=== PATIENT | female | born 1950 | race Caucasian/White ===

== ENCOUNTER 2017-03-30 07:32 | Inpatient (IN) ==
[2017-03-30] MEDS ORDERED: IOPAMIDOL 100 ML BOTTLE IV ONE (07:33)
[2017-03-30] MEDS ORDERED: DILTIAZEM 25 MG/5 ML VIAL IV ONE ×3 (07:34→07:57)
[2017-03-30] MEDS ORDERED: DILTIAZEM 125 MG in 0.9 % SODIUM CHLORIDE 100 ML IV SCH (07:45)
--- NOTE | 2017-03-30 07:47 | Emergency Department Note ---
General Adult HPI - General Chief complaint: Chest Pain Stated complaint: chest pain, fast hR Time Seen by Provider: 03/30/17 07:45 - History of Present Illness HPI Narrative: This patient noticed a tachycardia beginning about 30 minutes ago. Is it is associated with some chest pressure. Feels slightly short of breath. Not sure she has had this before or not. - Related Data Home Medications Medication Instructions Recorded Confirmed Fexofenadine [Nelda] 180 mg PO DAILY 08/30/15 03/30/17 Hydrochlorothiazide [Oretic] 12.5 mg PO DAILY 08/30/15 03/30/17 Vitamin D3 5,000 unit PO DAILY 08/30/15 03/30/17 diphenhydrAMINE [Benadryl] 25 mg PO HSP PRN 08/30/15 03/30/17 Albuterol Sulfate [Ventolin] 2 puff INH TID 03/30/17 03/30/17 Methocarbamol [Robaxin-750] 750 mg PO TID PRN 03/30/17 03/30/17 Montelukast Sodium [Singulair] 10 mg PO DAILY 03/30/17 03/30/17 Naproxen Sod/Diphenhydram HCl 1 tablet PO HS PRN 03/30/17 03/30/17 [Aleve Pm Caplet] Topiramate [Qudexy Xr] 100 mg PO HS 03/30/17 03/30/17 Vitamin D3 400 unit PO DAILY 03/30/17 03/30/17 metFORMIN [Glucophage] 500 mg PO DAILY 03/30/17 03/30/17 Previous Rx's Medication Instructions Recorded Enoxaparin [Lovenox] 80 mg SQ BID #20 04/01/17 Warfarin [Coumadin] 5 mg PO DAILY #30 tablet 04/01/17 Allergies Allergy/AdvReac Type Severity Reaction Status Date / Time acetaminophen [From Tylenol] Allergy Severe Anaphylaxis Verified 03/30/17 13:34 egg Allergy Verified 08/30/15 09:25 wheat Allergy Verified 08/30/15 09:25 dairy Allergy Uncoded 08/30/15 09:25 Review of Systems All systems ED: reviewed and negative except as stated. Past Medical History - Past Medical History Medical history: Reports: no medical history Physical Exam - General Limitations: no limitations General appearance: alert, in no apparent distress - Head Head exam: atraumatic, normocephalic - Eye Eye exam: Present: normal appearance - ENT ENT exam: normal exam - Neck Neck exam: Present: normal inspection - Chest Chest inspection: Present: normal inspection - Respiratory Respiratory exam: Present: normal lung sounds bilaterally - Cardiovascular Cardiovascular exam: Present: tachycardia, irregular rhythm - Abdominal Exam Abdominal exam: Present: soft. Absent: distention, tenderness - Neurological Exam Neurological exam: Present: alert - Psychiatric Psychiatric exam: Present: normal affect, normal mood - Skin Skin exam: Present: warm, dry, intact Course Vital Signs Pulse Rate 104 H 03/30/17 07:38 Respiratory Rate 11 L 03/30/17 07:38 Blood Pressure 129/89 03/30/17 07:38 Pulse Oximetry (%) 91 03/30/17 07:38 Temperature 97.8 F 04/01/17 13:30 Pulse Rate 58 L 04/01/17 13:30 Respiratory Rate 16 04/01/17 13:30 Blood Pressure 111/68 04/01/17 13:30 Pulse Oximetry (%) 99 04/01/17 13:30 Medical Decision Making - Lab Data Result diagrams: 04/01/17 04:48 04/01/17 04:48 Lab Results 03/30/17 03/30/17 03/30/17 Range/Units 07:40 07:40 07:40 WBC 7.4 (4.5-11.0) K/mcL RBC 4.55 (4.00-5.20) M/mcL Hgb 14.4 (12.0-15.0) g/dL Hct 42.2 (36.0-48.0) % MCV 92.7 (80.0-100.0) fL MCH 31.6 (26.0-34.0) pg MCHC 34.1 (31.0-36.0) g/dL RDW 13.9 (11.5-14.5) % Plt Count 218 (140-440) K/mcL MPV 8.5 (7.4-10.4) fL Gran % 61.4 (38.0-78.0) % Lymph % (Auto) 29.0 (15.5-49.0) % Hardy % (Auto) 6.7 (1.0-12.0) % Eos % (Auto) 2.3 (0.0-7.0) % Baso % (Auto) 0.6 (0.0-2.0) % Gran # 4.6 (1.8-8.0) K/mcL Lymph # (Auto) 2.2 (1.5-4.8) K/mcL Hardy # (Auto) 0.5 (0.1-0.9) K/mcL Eos # (Auto) 0.2 (0.0-0.7) K/mcL Baso # (Auto) 0 (0.0-0.3) K/mcL ESR (0-20) mm/hr PT (11.9-14.5) sec INR (0.9-1.1) APTT (20-37) sec D-Dimer Sodium 139 (133-145) mmol/L Potassium 4.2 (3.3-5.1) mmol/L Chloride 103 (96-108) mmol/L Carbon Dioxide 16 L (22-30) mmol/L Anion Gap 20.0 H (8-16) BUN 18 (8-23) mg/dl Creatinine 1.0 (0.6-1.1) mg/dl GFR Calculation 59 Glucose 122 H (70-105) mg/dL Calcium 9.2 (8.6-10.4) mg/dl Magnesium (1.6-2.5) mg/dL Total Bilirubin 0.5 (0.0-1.0) mg/dL AST 42 H (0-37) U/l ALT 20 (0-40) U/l Alkaline Phosphatase 55 (39-117) U/L Total Creatine Kinase 205 H (24-170) IU/L CK-MB (CK-2) 3.2 H (0-2.9) ng/ml Myoglobin 50 (25-58) ng/ml Troponin T < 0.01 (0-0.03) ng/ml Total Protein 6.9 (5.9-8.4) gm/dL Albumin 4.3 (3.2-5.2) gm/dL Globulin 2.6 (2.2-3.7) gm/dL Albumin/Globulin Ratio 1.7 (1.0-2.3) TSH (0.27-5.01) uIU/ml 03/30/17 03/30/17 03/30/17 Range/Units 07:40 07:40 07:40 WBC (4.5-11.0) K/mcL RBC (4.00-5.20) M/mcL Hgb (12.0-15.0) g/dL Hct (36.0-48.0) % MCV (80.0-100.0) fL MCH (26.0-34.0) pg MCHC (31.0-36.0) g/dL RDW (11.5-14.5) % Plt Count (140-440) K/mcL MPV (7.4-10.4) fL Gran % (38.0-78.0) % Lymph % (Auto) (15.5-49.0) % Hardy % (Auto) (1.0-12.0) % Eos % (Auto) (0.0-7.0) % Baso % (Auto) (0.0-2.0) % Gran # (1.8-8.0) K/mcL Lymph # (Auto) (1.5-4.8) K/mcL Hardy # (Auto) (0.1-0.9) K/mcL Eos # (Auto) (0.0-0.7) K/mcL Baso # (Auto) (0.0-0.3) K/mcL ESR (0-20) mm/hr PT 14.6 H (11.9-14.5) sec INR 1.1 (0.9-1.1) APTT 26 (20-37) sec D-Dimer TNP Sodium (133-145) mmol/L Potassium (3.3-5.1) mmol/L Chloride (96-108) mmol/L Carbon Dioxide (22-30) mmol/L Anion Gap (8-16) BUN (8-23) mg/dl Creatinine (0.6-1.1) mg/dl GFR Calculation Glucose (70-105) mg/dL Calcium (8.6-10.4) mg/dl Magnesium (1.6-2.5) mg/dL Total Bilirubin (0.0-1.0) mg/dL AST (0-37) U/l ALT (0-40) U/l Alkaline Phosphatase (39-117) U/L Total Creatine Kinase (24-170) IU/L CK-MB (CK-2) (0-2.9) ng/ml Myoglobin (25-58) ng/ml Troponin T (0-0.03) ng/ml Total Protein (5.9-8.4) gm/dL Albumin (3.2-5.2) gm/dL Globulin (2.2-3.7) gm/dL Albumin/Globulin Ratio (1.0-2.3) TSH 1.70 (0.27-5.01) uIU/ml 03/30/17 03/30/17 03/30/17 Range/Units 07:40 07:40 08:30 WBC (4.5-11.0) K/mcL RBC (4.00-5.20) M/mcL Hgb (12.0-15.0) g/dL Hct (36.0-48.0) % MCV (80.0-100.0) fL MCH (26.0-34.0) pg MCHC (31.0-36.0) g/dL RDW (11.5-14.5) % Plt Count (140-440) K/mcL MPV (7.4-10.4) fL Gran % (38.0-78.0) % Lymph % (Auto) (15.5-49.0) % Hardy % (Auto) (1.0-12.0) % Eos % (Auto) (0.0-7.0) % Baso % (Auto) (0.0-2.0) % Gran # (1.8-8.0) K/mcL Lymph # (Auto) (1.5-4.8) K/mcL Hardy # (Auto) (0.1-0.9) K/mcL Eos # (Auto) (0.0-0.7) K/mcL Baso # (Auto) (0.0-0.3) K/mcL ESR 8 (0-20) mm/hr PT (11.9-14.5) sec INR (0.9-1.1) APTT (20-37) sec D-Dimer 2.35 H Sodium (133-145) mmol/L Potassium (3.3-5.1) mmol/L Chloride (96-108) mmol/L Carbon Dioxide (22-30) mmol/L Anion Gap (8-16) BUN (8-23) mg/dl Creatinine (0.6-1.1) mg/dl GFR Calculation Glucose (70-105) mg/dL Calcium (8.6-10.4) mg/dl Magnesium 2.1 (1.6-2.5) mg/dL Total Bilirubin (0.0-1.0) mg/dL AST (0-37) U/l ALT (0-40) U/l Alkaline Phosphatase (39-117) U/L Total Creatine Kinase (24-170) IU/L CK-MB (CK-2) (0-2.9) ng/ml Myoglobin (25-58) ng/ml Troponin T (0-0.03) ng/ml Total Protein (5.9-8.4) gm/dL Albumin (3.2-5.2) gm/dL Globulin (2.2-3.7) gm/dL Albumin/Globulin Ratio (1.0-2.3) TSH (0.27-5.01) uIU/ml Disposition Pt seen by TANK HOUSE OPERATOR/PA only: No Clinical Impression: Atrial fibrillation with rapid ventricular response Pulmonary emboli Qualifiers: Pulmonary embolism type: other Chronicity: acute Acute cor pulmonale presence: without acute cor pulmonale Qualified Code(s): I26.99 - Other pulmonary embolism without acute cor pulmonale Popliteal DVT (deep venous thrombosis) Qualifiers: Chronicity: acute Laterality: right Qualified Code(s): I82.431 - Acute embolism and thrombosis of right popliteal vein Disposition: Xfer As Inpt ([facility]) Condition: Fair
[2017-03-30] MEDS ORDERED: ASPIRIN 81 MG TAB.CHEW CHEWED ONE (07:57)
[2017-03-30] MEDS ORDERED: 0.9 % SODIUM CHLORIDE 1,000 ML IV ONE (08:17)
[2017-03-30 08:19] LABS: Basophils # (Auto) 0 K/mcL (0.0-0.3); Basophils % (Auto) 0.6 % (0.0-2.0); Eosinophils # (Auto) 0.2 K/mcL (0.0-0.7); Eosinophils % (Auto) 2.3 % (0.0-7.0); Granulocytes % (Auto) 61.4 % (38.0-78.0); Lymphocytes # (Auto) 2.2 K/mcL (1.5-4.8); Mean Cell Volume 92.7 fL (80.0-100.0); Mean Corpuscular HGB Conc 34.1 g/dL (31.0-36.0); Mean Corpuscular Hemoglobin 31.6 pg (26.0-34.0); Monocytes # (Auto) 0.5 K/mcL (0.1-0.9); Monocytes % (Auto) 6.7 % (1.0-12.0); Platelet Count 218 K/mcL (140-440); RBC 4.55 M/mcL (4.00-5.20); Red Cell Distribution Width 13.9 % (11.5-14.5)
[2017-03-30] MEDS ORDERED: METOPROLOL TARTRATE 5 MG/5 ML VIAL IV ONE ×5 (08:30→13:48)
[2017-03-30 08:45] LABS: ALT/SGPT 20 U/l (0-40); Albumin 4.3 gm/dL (3.2-5.2); Albumin/Globulin Ratio 1.7 (1.0-2.3); Alkaline Phosphatase 55 U/L (39-117); Blood Urea Nitrogen 18 mg/dl (8-23); Creatine Kinase 205 IU/L (24-170); Creatine Kinase MB 3.2 ng/ml (0-2.9); Myoglobin 50 ng/ml (25-58)
--- NOTE | 2017-03-30 08:52 | XRay Report ---
CLINICAL INFORMATION: Chest pain COMPARISON: 07/31/2016 FINDINGS:The heart size, mediastinum and pulmonary vessels are unremarkable. The lungs are clear. There are no effusions. The bones and soft tissues are within normal limits. IMPRESSION: Normal chest. Interpreted and Authenticated by: Humza Coronel 03/30/17
[2017-03-30] MEDS ORDERED: DIGOXIN 500 MCG/2 ML AMPUL IV ONE ×3 (09:17→09:24)
--- NOTE | 2017-03-30 10:28 | Cat Scan Report ---
CLINICAL INFORMATION: Chest pain COMPARISON: None TECHNIQUE: Axial images obtained through the chest. 80 intravenous contrast administration was administered, and scanning was performed during pulmonary arterial phase. Sagittally and coronally reformatted images were obtained. MIP reformatted images. FINDINGS: Mediastinal windows show multiple, predominantly subocclusive acute pulmonary emboli: Right lower lobe pulmonary artery, medial and posterior basilar segmental pulmonary arteries of the right lower lobe, the posterior and lateral basilar segmental arteries of the left lower lobe, medial segmental artery of right middle lobe, anterior segmental artery of the right upper lobe, posterior segmental artery right upper lobe, anterior segmental artery of the left upper lobe. The central pulmonary arteries are well opacified and normal in caliber. There is no evidence of pulmonary hypertension or right heart enlargement. The thoracic aorta is normal in contour and caliber. The heart is normal in size and configuration. The proximal coronary arteries contain only minimal scattered atherosclerotic plaque. Esophagus is normal. There is no adenopathy in the mediastinal, hilar or axillary regions. Pulmonary parenchymal windows show the lungs are clear. There are no effusions. Bones and soft tissues of the chest wall are normal. Abdominal images show the visualized liver, adrenal glands spleen, pancreas and left kidney to be normal. There is a 6 cm simple cyst superior pole the right kidney. 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 The proximal SMA is unremarkable. IMPRESSION: 1. Multiple subocclusive acute pulmonary emboli. No CT evidence for pulmonary hypertension or right heart strain 2. 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 The SMA is widely patent. 3. 6 cm simple cyst - superior pole the right kidney Interpreted and Authenticated by: Humza Coronel 03/30/17
[2017-03-30] MEDS ORDERED: ENOXAPARIN 100 MG/ML SYRINGE SQ ONE (10:30)
[2017-03-30] MEDS ORDERED: WARFARIN 7.5 MG TABLET PO ONE (10:30)
[2017-03-30] MEDS ORDERED: ENOXAPARIN 80 MG/0.8 ML SYRINGE ONE (10:37)
--- NOTE | 2017-03-30 11:04 | Emergency Department Note ---
Chest Pain HPI - General Chief Complaint: Chest Pain Stated Complaint: chest pain, fast hR Time Seen by Provider: 03/30/17 07:45 Source: patient Mode of arrival: ambulatory Limitations: no limitations - History of Present Illness HPI Narrative: This 66-year-old female came in before my shift started with rapid ventricular rate, new onset atrial fibrillation. Her workup includes a CTA that showed positive for multiple subsegmental and segmental pulmonary emboli in the bilateral lower lobes and a few in the upper lobes. There was no sign of pulmonary hypertension or right atrial enlargement. Patient gave me a history of some shortness of breath for several weeks. She has no history of recent surgery, recent travel, recent lower extremity injury or personal history of blood clots. No family history of blood clots. She does give a history of muscle cramps in her lower extremities but this is long- term. - Related Data Home Medications Medication Instructions Recorded Confirmed Fexofenadine [Nelda] 180 mg PO DAILY 08/30/15 03/30/17 Hydrochlorothiazide [Oretic] 12.5 mg PO DAILY 08/30/15 03/30/17 Vitamin D3 5,000 unit PO DAILY 08/30/15 03/30/17 diphenhydrAMINE [Benadryl] 25 mg PO HSP PRN 08/30/15 03/30/17 Linagliptin/Metformin HCl 1 tablet PO DAILY 03/30/17 03/30/17 [Jentadueto 2.5 mg-500 mg Tab] Methocarbamol [Robaxin-750] 750 mg PO TID PRN 03/30/17 03/30/17 Montelukast Sodium [Singulair] 10 mg PO DAILY 03/30/17 03/30/17 Topiramate [Qudexy Xr] 100 mg PO HS 03/30/17 03/30/17 metFORMIN [Glucophage] 500 mg PO DAILY 03/30/17 03/30/17 Allergies Allergy/AdvReac Type Severity Reaction Status Date / Time acetaminophen [From Tylenol] Allergy Verified 08/30/15 09:24 egg Allergy Verified 08/30/15 09:25 wheat Allergy Verified 08/30/15 09:25 dairy Allergy Uncoded 08/30/15 09:25 Chest Pain PMH - Past Medical History Medical history: Reports: no medical history Physical Exam - General Limitations: no limitations General appearance: alert, in no apparent distress Course Course Narrative: See info under HPI also. Patient's rapid ventricular response including significant amount of time in the 1:30 to 140 range persisted in spite of a diltiazem drip that had gone up to 15 mg. She had had one dose of metoprolol 5 mg IV and 1 dose of digoxin 0.25 mg and continued to have this RVR. I discussed the case with Dr. Wray, hospitalist, with conclusion to maximize her diltiazem drip at 20 mg if her blood pressure with maintained. Before doing this her blood pressure was 117 systolic and it was felt that this was close to normal for her and so he went up to the 20 mg drip. My discussion with him was to push the RVR down with this increase in the drip and if not effective do a second dose of metoprolol and if this was not effective than the last option would be amiodarone and he would prefer cardiology to help assist in that care which is not available locally. Review of chart includes a d-dimer of 2.35, INR 1.1, PTT 26. Platelet count was normal and her CBC otherwise unremarkable. Her carbon dioxide on her metabolic panel was low at 16. Glucose was 122, anion gap 20 and AST 42. Others were totally unremarkable. Cardiac enzymes were negative. A TSH was added and came back as normal. Patient requested that we speak with her previous employer, medical affairs manager Dr. Licona, which I did. He felt that her heart rate, with her being quite stable could endure for at least a number of hours to see if medications improved her heart rate control (i.e, give it more time). Amiodarone would be her fourth option and this is a slow bolus. I spoke with the hospitalist, Dr. Wray, several times with regards to her situation and case. An ultrasound of her lower extremities demonstrated a distal popliteal clot and extension into the peroneal vein on the right leg. Because of her multiple clots, I also spoke with Dr. Humza Keller at [facility], interventional radiologist, about the possibility of thrombolysis. His conclusion was that there would be questionable benefit, her ratio is 0.8-0.9, and her total clot burden wasn't major. She does have multiple small pulmonary emboli and one a little bit larger but nonocclusive in the right side. he recommened against thrombolysis this at this point in time. He did not recommend a filter unless there were worsening symptoms or findings. At this point the clot has probably gone from her distal thigh veins into her chest and additional treatment of her lower extremity pain is not mechanical or a lytic in nature except a systemic anticoagulation. In speaking about this with Dr. Wray and he agrees and will accept her being transferred to [facility] on a monitored bed. At the time of discharge her heart rate would be variable between 120s and, only 135-140 but remaining asymptomatic. Consider follow-up enzymes. Continue with anticoagulation. Lovenox (1 mg/kg) has been given and coumadin 7.5. Vital Signs Pulse Rate 104 H 03/30/17 07:38 Respiratory Rate 11 L 03/30/17 07:38 Blood Pressure 129/89 03/30/17 07:38 Pulse Oximetry (%) 91 03/30/17 07:38 Temperature 97.0 F 03/30/17 07:39 Pulse Rate 75 03/30/17 11:50 Respiratory Rate 15 03/30/17 11:50 Blood Pressure 98/64 03/30/17 11:50 Pulse Oximetry (%) 96 03/30/17 11:50 Chest Pain - Lab Data Result diagrams: 03/30/17 07:40 03/30/17 07:40 Lab Results 03/30/17 03/30/17 03/30/17 Range/Units 07:40 07:40 07:40 WBC 7.4 (4.5-11.0) K/mcL RBC 4.55 (4.00-5.20) M/mcL Hgb 14.4 (12.0-15.0) g/dL Hct 42.2 (36.0-48.0) % MCV 92.7 (80.0-100.0) fL MCH 31.6 (26.0-34.0) pg MCHC 34.1 (31.0-36.0) g/dL RDW 13.9 (11.5-14.5) % Plt Count 218 (140-440) K/mcL MPV 8.5 (7.4-10.4) fL Gran % 61.4 (38.0-78.0) % Lymph % (Auto) 29.0 (15.5-49.0) % Rice % (Auto) 6.7 (1.0-12.0) % Eos % (Auto) 2.3 (0.0-7.0) % Baso % (Auto) 0.6 (0.0-2.0) % Gran # 4.6 (1.8-8.0) K/mcL Lymph # (Auto) 2.2 (1.5-4.8) K/mcL Rice # (Auto) 0.5 (0.1-0.9) K/mcL Eos # (Auto) 0.2 (0.0-0.7) K/mcL Baso # (Auto) 0 (0.0-0.3) K/mcL PT (11.9-14.5) sec INR (0.9-1.1) APTT (20-37) sec D-Dimer Sodium 139 (133-145) mmol/L Potassium 4.2 (3.3-5.1) mmol/L Chloride 103 (96-108) mmol/L Carbon Dioxide 16 L (22-30) mmol/L Anion Gap 20.0 H (8-16) BUN 18 (8-23) mg/dl Creatinine 1.0 (0.6-1.1) mg/dl GFR Calculation 59 Glucose 122 H (70-105) mg/dL Calcium 9.2 (8.6-10.4) mg/dl Total Bilirubin 0.5 (0.0-1.0) mg/dL AST 42 H (0-37) U/l ALT 20 (0-40) U/l Alkaline Phosphatase 55 (39-117) U/L Total Creatine Kinase 205 H (24-170) IU/L CK-MB (CK-2) 3.2 H (0-2.9) ng/ml Myoglobin 50 (25-58) ng/ml Troponin T < 0.01 (0-0.03) ng/ml Total Protein 6.9 (5.9-8.4) gm/dL Albumin 4.3 (3.2-5.2) gm/dL Globulin 2.6 (2.2-3.7) gm/dL Albumin/Globulin Ratio 1.7 (1.0-2.3) TSH (0.27-5.01) uIU/ml 03/30/17 03/30/17 03/30/17 Range/Units 07:40 07:40 07:40 WBC (4.5-11.0) K/mcL RBC (4.00-5.20) M/mcL Hgb (12.0-15.0) g/dL Hct (36.0-48.0) % MCV (80.0-100.0) fL MCH (26.0-34.0) pg MCHC (31.0-36.0) g/dL RDW (11.5-14.5) % Plt Count (140-440) K/mcL MPV (7.4-10.4) fL Gran % (38.0-78.0) % Lymph % (Auto) (15.5-49.0) % Rice % (Auto) (1.0-12.0) % Eos % (Auto) (0.0-7.0) % Baso % (Auto) (0.0-2.0) % Gran # (1.8-8.0) K/mcL Lymph # (Auto) (1.5-4.8) K/mcL Rice # (Auto) (0.1-0.9) K/mcL Eos # (Auto) (0.0-0.7) K/mcL Baso # (Auto) (0.0-0.3) K/mcL PT 14.6 H (11.9-14.5) sec INR 1.1 (0.9-1.1) APTT 26 (20-37) sec D-Dimer TNP Sodium (133-145) mmol/L Potassium (3.3-5.1) mmol/L Chloride (96-108) mmol/L Carbon Dioxide (22-30) mmol/L Anion Gap (8-16) BUN (8-23) mg/dl Creatinine (0.6-1.1) mg/dl GFR Calculation Glucose (70-105) mg/dL Calcium (8.6-10.4) mg/dl Total Bilirubin (0.0-1.0) mg/dL AST (0-37) U/l ALT (0-40) U/l Alkaline Phosphatase (39-117) U/L Total Creatine Kinase (24-170) IU/L CK-MB (CK-2) (0-2.9) ng/ml Myoglobin (25-58) ng/ml Troponin T (0-0.03) ng/ml Total Protein (5.9-8.4) gm/dL Albumin (3.2-5.2) gm/dL Globulin (2.2-3.7) gm/dL Albumin/Globulin Ratio (1.0-2.3) TSH 1.70 (0.27-5.01) uIU/ml 03/30/17 Range/Units 08:30 WBC (4.5-11.0) K/mcL RBC (4.00-5.20) M/mcL Hgb (12.0-15.0) g/dL Hct (36.0-48.0) % MCV (80.0-100.0) fL MCH (26.0-34.0) pg MCHC (31.0-36.0) g/dL RDW (11.5-14.5) % Plt Count (140-440) K/mcL MPV (7.4-10.4) fL Gran % (38.0-78.0) % Lymph % (Auto) (15.5-49.0) % Rice % (Auto) (1.0-12.0) % Eos % (Auto) (0.0-7.0) % Baso % (Auto) (0.0-2.0) % Gran # (1.8-8.0) K/mcL Lymph # (Auto) (1.5-4.8) K/mcL Rice # (Auto) (0.1-0.9) K/mcL Eos # (Auto) (0.0-0.7) K/mcL Baso # (Auto) (0.0-0.3) K/mcL PT (11.9-14.5) sec INR (0.9-1.1) APTT (20-37) sec D-Dimer 2.35 H Sodium (133-145) mmol/L Potassium (3.3-5.1) mmol/L Chloride (96-108) mmol/L Carbon Dioxide (22-30) mmol/L Anion Gap (8-16) BUN (8-23) mg/dl Creatinine (0.6-1.1) mg/dl GFR Calculation Glucose (70-105) mg/dL Calcium (8.6-10.4) mg/dl Total Bilirubin (0.0-1.0) mg/dL AST (0-37) U/l ALT (0-40) U/l Alkaline Phosphatase (39-117) U/L Total Creatine Kinase (24-170) IU/L CK-MB (CK-2) (0-2.9) ng/ml Myoglobin (25-58) ng/ml Troponin T (0-0.03) ng/ml Total Protein (5.9-8.4) gm/dL Albumin (3.2-5.2) gm/dL Globulin (2.2-3.7) gm/dL Albumin/Globulin Ratio (1.0-2.3) TSH (0.27-5.01) uIU/ml Disposition Pt seen by ELECTRON MICROPROBE OPERATOR/PA only: No Clinical Impression: Atrial fibrillation with rapid ventricular response Pulmonary emboli Qualifiers: Pulmonary embolism type: other Chronicity: acute Acute cor pulmonale presence: without acute cor pulmonale Qualified Code(s): I26.99 - Other pulmonary embolism without acute cor pulmonale Popliteal DVT (deep venous thrombosis) Qualifiers: Chronicity: acute Laterality: right Qualified Code(s): I82.431 - Acute embolism and thrombosis of right popliteal vein Summary: See under COURSE Disposition: Xfer As Inpt ([facility]) Condition: Serious Referrals: Yasmine Walden MD [Primary Care Provider] -
--- NOTE | 2017-03-30 12:51 | Ultrasound Report ---
CLINICAL INFORMATION: Elevated d-dimer with multiple known acute pulmonary emboli COMPARISON: None. FINDINGS: There is occlusive thrombus within the popliteal and proximal peroneal paired veins. The remainder of the deep venous system including the superficial femoral, common femoral, profunda femoris femoral and other trifurcation calf veins are widely patent IMPRESSION: Deep venous thrombus involving the popliteal and proximal peroneal venous segments Interpreted and Authenticated by: Humza Coronel 03/30/17
[2017-03-30] MEDS ORDERED: 0.9 % SODIUM CHLORIDE 1,000 ML IV SCH (13:15)
[2017-03-30] MEDS ORDERED: ACETAMINOPHEN 325 MG TABLET PO PRN (13:19)
[2017-03-30] MEDS ORDERED: ONDANSETRON 4 MG/2 ML VIAL IV PRN (13:19)
[2017-03-30] MEDS ORDERED: POTASSIUM CHLORIDE 20 MEQ PACKET PO PRN (13:19)
[2017-03-30] MEDS ORDERED: DEXTROSE 50% 50 ML VIAL IV PRN (13:19)
[2017-03-30] MEDS ORDERED: traZODone HCL 50 MG TABLET PO PRN (13:19)
[2017-03-30] MEDS ORDERED: DEXTROSE 31 GM ORAL.SUSP PO PRN (13:19)
[2017-03-30] MEDS ORDERED: ACETAMINOPHEN 1,000 MG/100 ML BOTTLE IV PRN (13:19)
[2017-03-30] MEDS ORDERED: MAGNESIUM SULFATE 2 GM/50 ML BAG IV PRN (13:19)
[2017-03-30] MEDS: METOPROLOL TARTRATE 5 MG/5 ML VIAL IV SCH ×3 (13:28→14:22)
[2017-03-30] MEDS: 0.9 % SODIUM CHLORIDE 10 ML SYRINGE IV SCH ×3 (13:28→22:02)
[2017-03-30] MEDS: 0.9 % SODIUM CHLORIDE 1,000 ML IV SCH (13:40)
[2017-03-30] MEDS ORDERED: METHOCARBAMOL 750 MG TABLET PO PRN (13:49)
--- NOTE | 2017-03-30 13:53 | Internal Med History&Physical ---
Medical - H&P: HPI Patient information: Note initiated : 03/30/17 at 1:45 pm Patient: Carey Lin a 66 y/o F admitted on 03/30/17 for Chest Pain, Fast HR. Chief Complaint: hest pain Chief complaint: chest pain History of present illness: Ms. Lin is a 66 year old F ho comes to [facility] ER after she has been experiencing significant substernal chest pain that started this morning ddescribed as 8 out of 10-10 out of 10 associated with exertion. There was no radiation to the arm. Patient has been feeling short of breath over the last month with radual progression of dyspnea on maximal exertion to dyspnea on minimal exertion. during the course of 1 month patient has been working her regular job and also taking care of horses however she has noticed a radual functional decline. She denies ssociated weight loss, drenching sweats,roductive sputum or hemoptysis. This morning she while checking her pulse she felt it thready and fast. She subsequently came to [facility] ER initial here workup was significant for atrial fibrillation with rapid ventricular rate. She underwent CT angiogram that revealed multifocal pulmonary embolism and lower extremity DVT on ultrasound. Patient was started on diltiazem drip with inadequate response and subsequently loaded on digoxin and received dose of metoprolol with heart rate improving around 130s from a peak of 170s. Subsequently cardiology and interventional radiology was consulted by ED physician. As per interventional radiology he would not requiring emergent catheter thrombolysis given segmental nature of PE. Cardiology recommended managing on rate control modalities including diltiazem/beta pari. Patient was started on 1 mg per KG Lovenox. First dose of Coumadin was administered. Initial cardiac enzymes were negative. Subsequently hospitalist service was consulted for management. xamination patient is accompanied with her . She denies active distress. She feels a lot better. She feels slightly lightheaded.eart rate is variable between 1:30 to 140 on telemetry is regular. She is nondiaphoretic. She is alert and cooperative other than above patient deniesglandular swelling and rash joint pain changes in medication. She denies recent lower extremity trauma, transcontinental flight. She denies clotting or bleeding history. She denies immobilization or lower extremity surgery. She however takes estrogens. 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 Functional capacity: independent ambulation Smoking status: Never smoker Have you smoked in the last 12 months: No Drug use: none Alcohol use: none Medical - H&P: Meds Home Medications Medication Instructions Recorded Confirmed Type Fexofenadine [Nelda] 180 mg PO DAILY 08/30/15 03/30/17 History Hydrochlorothiazide [Oretic] 12.5 mg PO DAILY 08/30/15 03/30/17 History Vitamin D3 5,000 unit PO DAILY 08/30/15 03/30/17 History diphenhydrAMINE [Benadryl] 25 mg PO HSP PRN 08/30/15 03/30/17 History Linagliptin/Metformin HCl 1 tablet PO DAILY 03/30/17 03/30/17 History [Jentadueto 2.5 mg-500 mg Tab] Methocarbamol [Robaxin-750] 750 mg PO TID PRN 03/30/17 03/30/17 History Montelukast Sodium [Singulair] 10 mg PO DAILY 03/30/17 03/30/17 History Topiramate [Qudexy Xr] 100 mg PO HS 03/30/17 03/30/17 History metFORMIN [Glucophage] 500 mg PO DAILY 03/30/17 03/30/17 History Allergies Allergy/AdvReac Type Severity Reaction Status Date / Time acetaminophen [From Tylenol] Allergy Severe Anaphylaxis Verified 03/30/17 13:34 egg Allergy Verified 08/30/15 09:25 wheat Allergy Verified 08/30/15 09:25 dairy Allergy Uncoded 08/30/15 09:25 Medical - H&P: Exam - Constitutional Vitals: Temp Pulse Resp BP Pulse Ox 97.0 F 84 17 94/50 97 03/30/17 07:39 03/30/17 13:00 03/30/17 13:00 03/30/17 13:00 03/30/17 13:00 General appearance: cooperative, obese Exam: eye movements are normal oral cavity dry ead normocephalic no eardischarge neck no lymphadenopathy S1 and S2 tachycardia irregular,No murmur diminished breath sounds bases abdomen soft ower extremity no cyanosis clubbing,no unilateral swelling skin no suspicious lesions psych alert cooperative neuro nonfocal Medical - H&P: Reslt - Labs CBC & Chem 7: 03/30/17 07:40 03/30/17 07:40 Medical - H&P: A/P (1) Atrial fibrillation with rapid ventricular response Current visit: Yes Status: Acute * atrial fibrillation with rapid ventricular rate-precipitated by multifocal pulmonary embolism. Continue rate control measures. If inadequate responsestart amiodarone * chest pain secondary to coronary hypoperfusion light of A. fib with RVR. hould improve with adequate rate control. * bilateral PE-No current indication for TPA as per interventional radiology. Continue full dose anticoagulation * dM type II continue randial insulin/sitagliptin * Hypertension on thiazide * Full code plan * Full dose anti-coagulation * rate control measures including calcium channel pari/beta pari/digoxin. * f inadequate response start Amiodarone load followed by drip * Admitted to ICU * close hemodynamic monitoring Critical care time spent over 45 minutes
[2017-03-30 14:20] LABS: Magnesium 2.1 mg/dL (1.6-2.5)
[2017-03-30] MEDS: DILTIAZEM 125 MG in 0.9 % SODIUM CHLORIDE 100 ML IV SCH (14:54)
[2017-03-30] MEDS ORDERED: AMIODARONE 150 MG in DEXTROSE 5% IN WATER 50 ML IV ONE (15:30)
[2017-03-30] MEDS: AMIODARONE 360 MG in PREMIX 1 BAG IV SCH ×2 (16:10→21:59)
[2017-03-30] MEDS ORDERED: INSULIN LISPRO 1 UNIT/0.01 ML UNIT SQ SCH (17:00)
[2017-03-30] MEDS: DOCUSATE SODIUM 100 MG CAPSULE PO SCH (20:43)
[2017-03-30] MEDS: SENNOSIDES/DOCUSATE SODIUM 1 TAB TABLET PO SCH (20:43)
[2017-03-30] MEDS: ENOXAPARIN 40 MG/0.4 ML SYRINGE SQ SCH (20:51)
[2017-03-30] MEDS: TOPIRAMATE 100 MG PO SCH (20:52)
[2017-03-31] MEDS: DILTIAZEM 125 MG in 0.9 % SODIUM CHLORIDE 100 ML IV SCH (01:51)
[2017-03-31] MEDS: AMIODARONE 360 MG in PREMIX 1 BAG IV SCH ×2 (03:59→17:49)
[2017-03-31 05:07] LABS: ALT/SGPT 14 U/l (0-40); Albumin/Globulin Ratio 1.4 (1.0-2.3); Alkaline Phosphatase 40 U/L (39-117); Bilirubin,Direct < 0.2 mg/dL (0.0-0.3); Blood Urea Nitrogen 11 mg/dl (8-23); Gamma Glutamyl Transpeptidase 9 U/L (5-36); Magnesium 1.9 mg/dL (1.6-2.5); Uric Acid 5.3 mg/dL (2.5-8.0)
[2017-03-31 05:10] LABS: Mean Cell Volume 93.6 fL (80.0-100.0); Mean Corpuscular HGB Conc 34.3 g/dL (31.0-36.0); Mean Corpuscular Hemoglobin 32.1 pg (26.0-34.0); Platelet Count 185 K/mcL (140-440); RBC 3.59 M/mcL (4.00-5.20); Red Cell Distribution Width 13.4 % (11.5-14.5)
[2017-03-31] MEDS: 0.9 % SODIUM CHLORIDE 10 ML SYRINGE IV SCH ×3 (05:10→21:30)
[2017-03-31 05:28] LABS: Eosinophils % (Manual) 3 % (0-7); Lymphocytes % 38 % (15-49); Monocytes % (Manual) 3 % (1-12); Platelet Estimate NORMAL (NORMAL); RBC Morphology NORMAL (NORMAL); Segmented Neutrophils % 56 % (38-78)
[2017-03-31] MEDS: 0.9 % SODIUM CHLORIDE 1,000 ML IV SCH ×2 (07:12→17:49)
[2017-03-31] MEDS ORDERED: 0.9 % SODIUM CHLORIDE 250 ML IV SCH (07:15)
[2017-03-31] MEDS ORDERED: sitaGLIPtin 100 MG TABLET PO SCH (09:00)
[2017-03-31] MEDS: MULTIVIT,THER IRON,CA,FA & MIN 1 TABLET PO SCH (09:56)
[2017-03-31] MEDS: FEXOFENADINE 180 MG TABLET PO SCH (09:56)
[2017-03-31] MEDS: DOCUSATE SODIUM 100 MG CAPSULE PO SCH ×2 (09:56→21:26)
[2017-03-31] MEDS: MONTELUKAST 10 MG TABLET PO SCH (09:56)
[2017-03-31] MEDS: ENOXAPARIN 40 MG/0.4 ML SYRINGE SQ SCH ×2 (09:57→21:30)
--- NOTE | 2017-03-31 09:59 | Internal Med Progress Note ---
Medical - PN: Subj Patient information: Note initiated : 03/31/17 at 9:55 am Service Date, if different from initiated Date: [] Patient: Carey Lin a 66 y/o F admitted on 03/30/17 for Chest Pain, Fast HR. Chief Complaint: [] Interval history: 03/30-Ms. Lin is a 66 year old F ho comes to [facility] ER after she has been experiencing significant substernal chest pain that started this morning ddescribed as 8 out of 10-10 out of 10 associated with exertion. There was no radiation to the arm. Patient has been feeling short of breath over the last month with radual progression of dyspnea on maximal exertion to dyspnea on minimal exertion. during the course of 1 month patient has been working her regular job and also taking care of horses however she has noticed a radual functional decline. She denies ssociated weight loss, drenching sweats,roductive sputum or hemoptysis. This morning she while checking her pulse she felt it thready and fast. She subsequently came to [facility] ER initial here workup was significant for atrial fibrillation with rapid ventricular rate. She underwent CT angiogram that revealed multifocal pulmonary embolism and lower extremity DVT on ultrasound. Patient was started on diltiazem drip with inadequate response and subsequently loaded on digoxin and received dose of metoprolol with heart rate improving around 130s from a peak of 170s. Subsequently cardiology and interventional radiology was consulted by ED physician. As per interventional radiology he would not requiring emergent catheter thrombolysis given segmental nature of PE. Cardiology recommended managing on rate control modalities including diltiazem/beta pari. Patient was started on 1 mg per KG Lovenox. First dose of Coumadin was administered. Initial cardiac enzymes were negative. Subsequently hospitalist service was consulted for management. xamination patient is accompanied with her . She denies active distress. She feels a lot better. She feels slightly lightheaded.eart rate is variable between 1:30 to 140 on telemetry is regular. She is nondiaphoretic. She is alert and cooperative 03/31- atient converted to sinus after amiodarone load. currently in sinus bradycardia. Amiodarone discontinued. Denies sOB/lightheadedness but complains of minimal chest pain. On full dose Lovenox along with Coumadin.no overnight telemetry events. No other concerns expressed by nursing staff. anticipate discharge in 24 hours with outpatient Lovenox and Coumadin - Constitutional Vitals: Vital Signs Temp Pulse Resp BP Pulse Ox 98.2 F 102 H 20 93/57 100 03/30/17 20:01 03/30/17 13:20 03/30/17 20:01 03/31/17 07:01 03/31/17 07:00 Period Temp Pulse Resp BP Sys/Fernando Pulse Ox Last 24 Hr 97.5 F-98.2 F 102 20-20 83-115/47-87 83-100 Intake and Output 03/30/17 03/31/17 03/31/17 21:59 05:59 13:59 Intake Total 350 / 350 1000 / 1000 Output Total 600 / 600 375 / 375 450 / 450 Balance -250 / -250 -375 / -375 550 / 550 Weight 209 lb Intake & Output: Intake & Output 03/30/17 03/31/17 03/31/17 21:59 05:59 13:59 Intake Total 350 / 350 1000 / 1000 Output Total 600 / 600 375 / 375 450 / 450 Balance -250 / -250 -375 / -375 550 / 550 Weight 209 lb Intake: IV 350 / 350 875 / 875 Sodium Chloride 0.9% 1, 875 / 875 000 ml @ 50 mls/hr IV . Q20H [facility] Rx#:[id number] Cordarone 150 mg In 53 / 53 Dextrose 5% in Water 50 ml @ 300 mls/hr IV ONCE ONE Rx#:[id number] Nexterone 360 mg In 200 / 200 Premix 1 Bag @ 1 MG/MIN 33.33 mls/hr IV .Q6H1M [facility] Rx#:[id number] Cardizem 125 mg In Sodium 97 / 97 Chloride 0.9% 100 ml @ 5 MG/HR 5 mls/hr IV Q12H [facility] Rx#:[id number] IV - Manual Only 125 / 125 Output: Void Amount 600 / 600 375 / 375 450 / 450 General appearance: cooperative, no acute distress Exam: inus bradycardia and telemetry alert oriented nonlabored breathing no lymphedema Medical - PN: Obj Da - Labs CBC & Chem 7: 03/31/17 04:19 03/31/17 04:19 Labs: Abnormal Lab Results 03/31/17 03/31/17 03/31/17 04:19 04:19 04:19 RBC 3.59 L Hgb 11.5 L Hct 33.6 L PT 17.2 H INR 1.4 H Carbon Dioxide 18 L Glucose 122 H Calcium 7.7 L Phosphorus 2.5 L Total Protein 5.1 L Albumin 3.0 L Globulin 2.1 L Triglycerides 183 H Meds: Medications Docusate Sodium (Colace) 100 mg PO BID [facility] Last Admin: 03/30/17 20:43 Dose: Not Given Enoxaparin Sodium (Lovenox) 80 mg SQ BID [facility] Last Admin: 03/30/17 20:51 Dose: 80 mg Fexofenadine HCl (Nelda) 180 mg PO DAILY [facility] Diltiazem HCl 125 mg/ Sodium (Chloride) 125 mls @ 5 mls/hr IV Q12H [facility]; 5 MG/HR PRN Reason: Protocol Last Admin: 03/31/17 01:51 Dose: Not Given Magnesium Sulfate (Magnesium Sulfate) 2 gm in 50 mls @ 50 mls/hr IV UD PRN PRN Reason: MG = or < 1.7 Sodium Chloride (Sodium Chloride 0.9%) 1,000 mls @ 50 mls/hr IV .Q20H [facility] Stop: 04/02/17 01:18 Last Admin: 03/31/17 07:12 Dose: 50 mls/hr AMIODARONE 360 mg/ Premix 200 mls @ 33.33 mls/hr IV .Q6H1M [facility]; 1 MG/MIN PRN Reason: Protocol Stop: 03/31/17 15:44 Last Admin: 03/31/17 03:59 Dose: Not Given Sodium Chloride (Sodium Chloride 0.9%) 250 mls @ 20 mls/hr IV .[id number] [facility] Last Admin: 03/31/17 07:22 Dose: 10 mls/hr Iron Carb/Multivit/Software Support Representative/Folic Acid (Multivitamin W/Minerals) 1 tab PO DAILY [facility] Methocarbamol (Robaxin) 750 mg PO TIDP PRN PRN Reason: Spasms Montelukast Sodium (Singular) 10 mg PO DAILY [facility] Ondansetron HCl (Zofran) 4 mg IV Q4-6HP PRN PRN Reason: Nausea And Vomiting Topiramate [Qudexy (Xr] 100 Mg Cap) 1 dose PO HS [facility] Last Admin: 03/30/17 20:52 Dose: Not Given Potassium Chloride (Klor-Con) 40 meq PO DAILYP PRN PRN Reason: K+ < 3.5 Senna/Docusate Sodium (Senna Plus Tablet) 1 tab PO HS [facility] Last Admin: 03/30/17 20:43 Dose: Not Given Sodium Chloride (Saline Flush) 10 ml IV Q8 [facility] Last Admin: 03/31/17 05:10 Dose: Not Given Trazodone HCl (Desyrel) 50 mg PO HSP PRN PRN Reason: Insomnia Warfarin Sodium (Coumadin Per Pharmacy) 1 order PO UD [facility] Medical - PN: A/P - Time Spent With Patient Total time spent is greater than 50% in coordination of care (as documented) at patient's floor/unit and/or counseling patient: 25 - 35 minutes (1) Atrial fibrillation with rapid ventricular response Status: Acute Assessment and plan: * Multifocal bilateral NPROVOKED pulmonary embolism-n full dose anticoagulation. No evidence of cor pulmonale on echo. rECOMMEND LIFELONG ANTICOAGULATION * Atrial fibrillation with rapid ventricular rate- Currently in sinus status post amiodarone. * Chest pain secondary to coronary hypoperfusion ith underlying RVR. Resolved post conversion to sinus * DM type II continue randial insulin/sitagliptin * Hypertension on thiazide * Full code plan * continue Full dose anti-coagulation * dC miodarone * transfer to telemetry * possible discharge in 24 hours Current Visit: Yes Medical - PN: Qual - VTE Deep Vein Thrombosis/Pulmonary Embolism Present on Admission: Yes
[2017-03-31] MEDS ORDERED: WARFARIN 5 MG TABLET PO ONE (14:00)
[2017-03-31] MEDS ORDERED: LORazepam 0.5 MG TABLET PO PRN (21:00)
[2017-03-31] MEDS: SENNOSIDES/DOCUSATE SODIUM 1 TAB TABLET PO SCH (21:26)
[2017-03-31] MEDS: TOPIRAMATE 100 MG PO SCH (21:30)
[2017-04-01] MEDS: 0.9 % SODIUM CHLORIDE 10 ML SYRINGE IV SCH ×2 (05:21→13:16)
[2017-04-01 07:41] LABS: ALT/SGPT 15 U/l (0-40); Albumin 3.4 gm/dL (3.2-5.2); Albumin/Globulin Ratio 1.6 (1.0-2.3); Alkaline Phosphatase 44 U/L (39-117); Bilirubin,Direct < 0.2 mg/dL (0.0-0.3); Blood Urea Nitrogen 11 mg/dl (8-23); Gamma Glutamyl Transpeptidase 10 U/L (5-36); Uric Acid 5.3 mg/dL (2.5-8.0)
[2017-04-01 08:00] LABS: Mean Cell Volume 93.7 fL (80.0-100.0); Mean Corpuscular Hemoglobin 31.9 pg (26.0-34.0); Platelet Count 205 K/mcL (140-440); RBC 4.29 M/mcL (4.00-5.20); Red Cell Distribution Width 14.1 % (11.5-14.5)
[2017-04-01 08:15] LABS: Band Neutrophils % 1 % (0-10); Basophils % (Manual) 1 % (0-2); Eosinophils % (Manual) 4 % (0-7); Lymphocytes % 33 % (15-49); Monocytes % (Manual) 5 % (1-12); Platelet Estimate NORMAL (NORMAL); RBC Morphology NORMAL (NORMAL); Segmented Neutrophils % 56 % (38-78)
[2017-04-01] MEDS: ENOXAPARIN 40 MG/0.4 ML SYRINGE SQ SCH (08:33)
[2017-04-01] MEDS: DOCUSATE SODIUM 100 MG CAPSULE PO SCH ×2 (08:33→10:09)
[2017-04-01] MEDS: MONTELUKAST 10 MG TABLET PO SCH (08:33)
[2017-04-01] MEDS: FEXOFENADINE 180 MG TABLET PO SCH (08:33)
[2017-04-01] MEDS: MULTIVIT,THER IRON,CA,FA & MIN 1 TABLET PO SCH (08:33)
--- NOTE | 2017-04-01 11:06 | Discharge Summary ---
Medical - DS: Prov Patient information: Note initiated : 04/01/17 at 11:00 am Service Date, if different from initiated Date: [] Patient: Carey Lin 66 y/o F admitted on 03/30/17 for Chest Pain, Atrial Fib. Chief Complaint: [] Date of admission: 03/30/17 13:05 Discharge date: 04/01/17 Primary care physician: Yasmine Walden Admitting clinician: Raj Winslow Consults: 03/30/17 13:19 Consult to Physician [CONS] Routine Comment: Consulting Provider: Raj Winslow Reason For Exam: Physician to Consult Discharging clinician: Anikte Rosenthal Medical - DS: Meds - Discharge Medications Prescriptions: Enoxaparin [Lovenox] 80 mg SQ BID #20 Warfarin [Coumadin] 5 mg PO DAILY #30 tablet Active and Home Medications: Home Medications Fexofenadine [Nelda] 180 mg PO DAILY 08/30/15 [History Confirmed 03/30/17 Last Taken 03/29/17] Hydrochlorothiazide [Oretic] 12.5 mg PO DAILY 08/30/15 [History Confirmed Last Taken 03/30/17] Vitamin D3 5,000 unit PO DAILY 08/30/15 [History Confirmed 03/30/17 Last Taken 09/30/16] diphenhydrAMINE [Benadryl] 25 mg PO HSP PRN 08/30/15 [History Confirmed Last Taken 03/29/17] Albuterol Sulfate [Ventolin] 2 puff INH TID 03/30/17 [History Confirmed Last Taken 01/01/17] Methocarbamol [Robaxin-750] 750 mg PO TID PRN 03/30/17 [History Confirmed Last Taken 03/29/17] Montelukast Sodium [Singulair] 10 mg PO DAILY 03/30/17 [History Confirmed Last Taken 03/29/17] Naproxen Sod/Diphenhydram HCl [Aleve Pm Caplet] 1 tablet PO HS PRN 03/30/17 [ History Confirmed 03/30/17 Last Taken 03/29/17] Topiramate [Qudexy Xr] 100 mg PO HS 03/30/17 [History Confirmed 03/30/17 Last Taken 03/29/17] Vitamin D3 400 unit PO DAILY 03/30/17 [History Confirmed 03/30/17 Last Taken ] metFORMIN [Glucophage] 500 mg PO DAILY 03/30/17 [History Confirmed 03/30/17 Last Taken 03/30/17] Medical - DS: Hosp Hospital course: Mr. Lin is a 66 year old Female presented to the ER with complaints of chest pain and acute shortness of breath. The aptient has chr worsening of her Shortness of breath over 1 month, but had acute onset of chest pain on the day of presentation to the Er. In the ER the patient was noted to be tachycardic, tachypneic, and in afib with RVR with elevated D dimer. The patient had a CTA done which showed Acute pulmonary Embolism, she also had DVT on her lower extremity. IR was consulted by the ER and the patient was deemed not a candidate for interventional procedures given subsegmental nature of the embolus. Anticoagulation was recommended. The patient had AFib with RVR and was placed on cardizem drip, and then subsequently given metoprolol, digoxin and amiodarone. Cardiology consulted by phone recommended rate control and monitoring. Patient HR improved and she was off all meds > 24 hrs with stable heart rate at discharge Acute pulmonary embolus.: Likely secondary to DVT, but the primary etiology of thrombosis remains uncertain, pt has denied any history of immobility or use of prothrombotic drugs, she has had a colonoscopy but not recently, she denies having a mammogram recently. The patient is presently being treated with lovenox and coumadin. She will consider newer anticoagulation agents after further review with her PCP. The patient will need follow up with hematology for evaluation of unprovoked DVT, and likely the duration of anticoagulation. Major risks benefits of the new medication discussed, all questions answered. Afib with RVR likely secondary to Acute pe, after the stabilization of the acute event the patient was intially treated with cardizem, digoxin, metoprolol and amiodarone, but the patients HR improved and at the time of discharge has not needed any meds for rate control. Its likely that at this time she has some residual effect of long acting medication of amiodarone, Should she become tachycardic in future, cardiazem vs metoprolol can be used for rate control. The rest of the stay in the hospital was uneventful, no changes in home meds done except addition of coumadin and lovnenox. 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 Pt will follow up with PCP for INR monitoring and Hematology for evaluation of unprovoked PE. Discharge diagnosis: acute PE, DVT, Afib with RVR - Time Spent with Patient Total time spent providing and/or coordinating discharge services: Greater than 30 minutes Medical - DS: Exam - Constitutional Vitals: Vital Signs Temp Pulse Resp BP BP BP Pulse Ox 04/01/17 08:00 97.5 F 16 139/80 99 04/01/17 04:00 96.9 F L 64 18 125/71 98 04/01/17 00:00 63 18 95 03/31/17 20:00 97.5 F 20 123/64 95 03/31/17 16:17 117/77 03/31/17 16:02 123/77 03/31/17 16:00 98.3 F 20 118/65 100 03/31/17 15:54 141/72 03/31/17 12:01 96.4 F L 20 124/76 99 Intake and Output 03/31/17 04/01/17 04/01/17 21:59 05:59 13:59 Intake Total 600 / 600 300 / 300 240 / 240 Output Total 1100 / 1100 350 / 350 950 / 950 Balance -500 / -500 -50 / -50 -710 / -710 Intake: Oral 600 / 600 300 / 300 240 / 240 Output: Void Amount 1100 / 1100 350 / 350 950 / 950 Other: Meal Dinner Breakfast Percent of Meal Consumed 100% 100% Feeding Ability Assist with Tray Set Up Independent Weight 209 lb Additional comments: Constitutional; Afebrile, cooperative, alert, not in distress. Eyes- No icterus, , No periorbital swelling Ears- Ext ear normal, hearing normal to conversation. Neck- Midline trachea, supple Respiratory system: Air Entry equal on both sides, No crackles or wheezing, no rhonchi. CVS- Rate rhythm regular, S1,S2 heard, no gallop, no rub. Abdomen- Soft nontender abdomen, no organomegaly, no tenderness, no guarding or rigidity, [employer]- AOOx3, moving all extremities, no gross focal deficit noted. Medical - DS: Data Procedures and tests throughout hospitalization: CLINICAL INFORMATION: Chest pain COMPARISON: 07/31/2016 FINDINGS:The heart size, mediastinum and pulmonary vessels are unremarkable. The lungs are clear. There are no effusions. The bones and soft tissues are within normal limits. IMPRESSION: Normal chest. CTA Chest IMPRESSION: 1. Multiple subocclusive acute pulmonary emboli. No CT evidence for pulmonary hypertension or right heart strain 2. 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 The SMA is widely patent. 3. 6 cm simple cyst - superior pole the right kidney Interpreted and Authenticated by: Humza Coronel 03/30/17 Duplex lower extremity IMPRESSION: Deep venous thrombus involving the popliteal and proximal peroneal venous segments Echocardiogram LV is normal in size and thickness, LVEF 65 LA mildly dilated RA is borderline dilated IVC collapse < 50% on inspiration, possible raised cvp RV could not be assessed in absense of significant Tricuspid Regurgitation. AF with a rapid response. Labs on day of discharge: Labs from last 24 hours 04/01/17 04/01/17 04/01/17 04:48 04:48 04:48 WBC 6.3 RBC 4.29 Hgb 13.7 Hct 40.2 MCV 93.7 MCH 31.9 MCHC 34.0 RDW 14.1 Plt Count 205 MPV 8.5 Total Counted 100 Seg Neutrophils % 56 Band Neutrophils % 1 Lymphocytes % 33 Monocytes % (Manual) 5 Eosinophils % (Manual) 4 Basophils % (Manual) 1 Platelet Estimate Normal RBC Morphology Normal PT 16.7 H INR 1.3 H Sodium 142 Potassium 3.6 Chloride 110 H Carbon Dioxide 17 L Anion Gap 15.0 BUN 11 Creatinine 0.9 GFR Calculation 68 Glucose 80 Uric Acid 5.3 Calcium 8.3 L Phosphorus 2.6 L Magnesium 2.0 Total Bilirubin 0.2 Direct Bilirubin < 0.2 GGT 10 AST 18 ALT 15 Alkaline Phosphatase 44 Lactate Dehydrogenase 195 Total Protein 5.5 L Albumin 3.4 Globulin 2.1 L Albumin/Globulin Ratio 1.6 Triglycerides 183 H Medical - DS: A/P - Patient/Caregiver Discharge Instructions Activity: increase activity as tolerated Diet: Cardiac Additional Instructions: Take medication as instructed Follow up with PCP for INR check, within thin the next few days. Take enoxaparin twice daily via SQ route and Coumadin 5mg once daily till you are seen by your primary provider Follow up with Dr Teresa (Hematology) for evaluation of Pulmonary embolism. Go to the ER if any bleeding in stools, headache, syncope, black tarry stools, blood in urine or any other concerning symptom. Avoid contact sports while on blood thinners, you are at high risk of bleeding as result of this medication. Prescriptions: Enoxaparin [Lovenox] 80 mg SQ BID #20 Warfarin [Coumadin] 5 mg PO DAILY #30 tablet - Follow up Plan Follow up with: Yasmine Walden MD [Primary Care Provider] - 04/03/17 10:30 am John Moore MD [Physician] - Disposition: Home, Self-Care Prognosis: Fair Rehab Potential: Fair I certify that the patient requires SNF services: No Overall status at discharge: patient is progressing back to baseline Medical - DS: Qual - VTE Deep Vein Thrombosis/Pulmonary Embolism Present on Admission: Yes
[2017-04-01] MEDS ORDERED: WARFARIN 5 MG TABLET PO ONE (14:00)
== END 2017-04-01 14:07 | disposition home or self-care (01) | DRG 176 ==
LOC: ED 07:32 → ICU 13:05
PROVIDERS: ADMIT Internal Medicine; ATTEND Internal Medicine